=== PATIENT | female | born 2000 | race Caucasian/White ===

== ENCOUNTER 2022-06-07 14:02 | Emergency (ER) | payer BC ==
[2022-06-07] MEDS ORDERED: Ondansetron PF 4 MG/2 ML Vial ONE (14:40)
== END 2022-06-07 15:55 | disposition home or self-care (01) ==
LOC: CSHERS 14:02
DX: E86.0 Dehydration (principal); R11.2 Nausea with vomiting, unspecified
CPT/HCPCS: 80307; 96361; 96374; J2405